=== PATIENT | female | born 1965 | race Caucasian/White ===

== ENCOUNTER 2021-03-01 01:08 | Emergency (ER) | payer SELFPAY ==
[~2021-03-01] VITALS: Ht 157.5 cm; Wt 59.5 kg
[2021-03-01] MEDS ORDERED: ATIV1TAB10 PO (01:21)
[2021-03-01] MEDS ORDERED: PROZ40CA PO (01:21)
[2021-03-01 10:44] VITALS: BP 100/64
== END 2021-03-01 10:47 | disposition home or self-care (01) ==
LOC: M ED 01:08
DX: F33.9 Major depressive disorder, recurrent, unspecified (principal); Z79.899 Other long term (current) drug therapy